=== PATIENT | female | born 1985 | race Caucasian/White ===

== ENCOUNTER → 2017-09-28 15:43 | Outpatient (CLI) | payer OTHER, SELFPAY ==
--- NOTE | 2017-09-28 15:50 | RAD_ITS ---
STUDY: X-RAY - SOFT TISSUE NECK REASON FOR EXAM: Female, 31 years old. Obstructive sleep apnea. TECHNIQUE: AP and lateral view(s) of the neck were obtained. COMPARISON: None. FINDINGS: Normal visualized nasopharynx, oropharynx, hypopharynx. The airway measures 11.6 mm from the base of the tongue to the anterior prevertebral soft tissues at the C2 level. Normal epiglottis. Normal visualized subglottic tracheal air column. Normal prevertebral soft tissue structures. Normal visualized osseous structures. The soft tissue structures are unremarkable. RAD/Neck for Soft Tissue IMPRESSION: The airway measures 11.6 mm from the base of the tongue to the anterior prevertebral soft tissues at the C2 level. Electronically Signed: Tanner Cheek MD at 8:10 EDT Tel [phone], Service support ,
== END ==
PROVIDERS: Family Provider Family Medicine; PCP Family Medicine; Visit Provider Otolaryngology Otolaryngology/Facial Plastic Surgery
DX: G47.33 Obstructive sleep apnea (adult) (pediatric) (principal); R06.83 Snoring
CPT/HCPCS: 70360

== ENCOUNTER → 2018-03-08 16:08 | Outpatient (CLI) | payer OTHER, SELFPAY ==
[2018-03-08 16:47] LABS: Absolute Lymphocyte Count 1.56 X10^3/ul (0.83-4.51); Absolute Neutrophil Count 6.6 X10^3/uL (2.0-7.7); Basophil# 0.03 X10^3/uL; Basophil% 0.3 % (0-1); Eosinophil# 0.31 X10^3/uL; Eosinophils% 3.3 % (0-5); Hematocrit 38.4 % (37-47); Hemoglobin 12.9 g/dl (12.0-15.0); Lymphocyte # 1.56 X10^3/ul (4.0); Lymphocyte % 16.6 % (19-41); Mean Corp Hgb Conc 33.6 g/gl (32-36); Mean Corpuscular Hgb 30.2 pg (27.0-32.0); Mean Corpuscular Volume 89.9 fL (81-99); Mean Platelet Vol. 10.7 fl (6.2-12.0); Monocyte# 0.83 X10^3/uL; Monocyte% 8.8 % (0-10); Neutrophil # 6.64 X10^3/uL (2.7-7.7); Neutrophil % 70.9 % (47-70); Platelet Count 194 K/mm3 (150-450); RBC Distribution Width CV 12.7 % (11.6-14.6); Red Blood Count 4.27 M/mm3 (4.2-5.4); White Blood Count 9.4 K/mm3 (4.4-11.0)
[2018-03-08 16:50] LABS: POSITIVE COUNT NO; POSITIVE DIFFERENTIAL NO; POSITIVE MORPHOLOGY NO
[2018-03-09 10:31] LABS: HIV - WCH Non-Reactive (Nonreactive); Rubella IgG > 500.0 IU/mL
[2018-03-11 03:49] LABS: Rapid Plasmin Reagin (RPR) NONREACTIVE (NONREACTIVE)
[2018-03-11 09:48] LABS: HEPATITIS B SURFACE AG Negative (Negative)
== END ==
PROVIDERS: Family Provider Family Medicine; PCP Family Medicine; Visit Provider Obstetrics & Gynecology
DX: Z34.90 Encounter for supervision of normal pregnancy, unspecified, unspecified trimester (principal)
CPT/HCPCS: 36415; 85025; 86592; 86703; 86762; 86850; 86900; 87340

== ENCOUNTER → 2018-03-08 17:54 | Outpatient (CLI) | payer OTHER, SELFPAY ==
[2018-03-08 19:51] LABS: Chlamydia Trachomatis by PCR Negative (Negative); Neisserai gonorrhoeae by PCR Negative (Negative); Probe Check PASS; Sample Adequacy Control PASS; Specimen Processing Control PASS
== END ==
PROVIDERS: Family Provider Family Medicine; PCP Family Medicine; Visit Provider Obstetrics & Gynecology
DX: Z34.90 Encounter for supervision of normal pregnancy, unspecified, unspecified trimester (principal)
CPT/HCPCS: 87086; 87491; 87591

== ENCOUNTER → 2018-03-17 14:30 | Outpatient (CLI) | payer OTHER, SELFPAY | PROVIDERS: Family Provider Family Medicine; PCP Family Medicine; Visit Provider Nurse Practitioner Women's Health | DX: Z34.81 Encounter for supervision of other normal pregnancy, first trimester (principal) | CPT/HCPCS: 36415 ==

== ENCOUNTER → 2018-03-29 13:44 | Outpatient (CLI) | payer OTHER, SELFPAY | PROVIDERS: Family Provider Family Medicine; PCP Family Medicine; Visit Provider Nurse Practitioner Women's Health | DX: Z34.81 Encounter for supervision of other normal pregnancy, first trimester (principal) ==

== ENCOUNTER → 2018-07-14 10:49 | Outpatient (CLI) | payer OTHER, SELFPAY ==
[2018-07-14 10:26] VITALS: BMI 34.2
[2018-07-14 11:39] LABS: Absolute Lymphocyte Count 1.32 X10^3/ul (0.83-4.51); Absolute Neutrophil Count 5.9 X10^3/uL (2.0-7.7); Basophil# 0.01 X10^3/uL; Basophil% 0.1 % (0-1); Eosinophil# 0.18 X10^3/uL; Eosinophils% 2.3 % (0-5); Glucose Challenge Gest 1H 50g 126 mg/dL (70-140); Hematocrit 32.8 % (37-47); Hemoglobin 10.9 g/dl (12.0-15.0); Lymphocyte # 1.32 X10^3/ul (4.0); Lymphocyte % 16.6 % (19-41); Mean Corp Hgb Conc 33.2 g/gl (32-36); Mean Corpuscular Hgb 29.5 pg (27.0-32.0); Mean Corpuscular Volume 88.9 fL (81-99); Mean Platelet Vol. 10.4 fl (6.2-12.0); Monocyte# 0.51 X10^3/uL; Monocyte% 6.4 % (0-10); Neutrophil # 5.91 X10^3/uL (2.7-7.7); Neutrophil % 74.5 % (47-70); Platelet Count 177 K/mm3 (150-450); RBC Distribution Width CV 12.6 % (11.6-14.6); RBC Distribution Width SD 40.6 fl (35.1-43.9); Red Blood Count 3.69 M/mm3 (4.2-5.4); White Blood Count 7.9 K/mm3 (4.4-11.0)
[2018-07-14 11:40] LABS: POSITIVE COUNT NO; POSITIVE DIFFERENTIAL NO; POSITIVE MORPHOLOGY NO
== END ==
PROVIDERS: Family Provider Family Medicine; PCP Family Medicine; Visit Provider Nurse Practitioner Women's Health
DX: Z34.90 Encounter for supervision of normal pregnancy, unspecified, unspecified trimester (principal)
CPT/HCPCS: 36415; 82950; 85025; 86850; 86900

== ENCOUNTER → 2018-08-25 13:38 | Outpatient (CLI) | payer OTHER, SELFPAY ==
[2018-08-17 10:50] VITALS: BMI 36.0
[2018-08-25 14:04] LABS: ROM Internal Control Test YES-OK TO RESULT pt. (Internal QC); ROM Patient Test Negative (Negative); Record Kit Lot#, ROM+ J7836
== END ==
PROVIDERS: Family Provider Family Medicine; PCP Family Medicine; Referring Provider Nurse Practitioner Women's Health; Visit Provider Nurse Practitioner Women's Health
DX: N89.8 Other specified noninflammatory disorders of vagina (principal)
CPT/HCPCS: 84112

== ENCOUNTER 2018-08-31 12:10 | Outpatient (CLI) | payer OTHER, SELFPAY ==
[2018-08-31 10:27] VITALS: BMI 36.8
[2018-08-31 12:22] VITALS: BMI 36.2
[2018-08-31 12:40] LABS: Protein, Urine (Random) 19.1 mg/dL (<11.9); Protein:Creat Ratio 87 mg/g CRE (0-200)
[2018-08-31 12:56] LABS: Hematocrit 35.6 % (37-47); Hemoglobin 11.6 g/dl (12.0-15.0); Mean Corp Hgb Conc 32.6 g/gl (32-36); Mean Corpuscular Hgb 28.5 pg (27.0-32.0); Mean Corpuscular Volume 87.5 fL (81-99); Mean Platelet Vol. 10.7 fl (6.2-12.0); Platelet Count 176 K/mm3 (150-450); RBC Distribution Width CV 13.5 % (11.6-14.6); RBC Distribution Width SD 43.2 fl (35.1-43.9); Red Blood Count 4.07 M/mm3 (4.2-5.4); Scan Indicated on CBC? Y/N NO; White Blood Count 9.5 K/mm3 (4.4-11.0)
[2018-08-31 13:03] LABS: Partial Thromboplast Time 25.2 Seconds (24.1-36.2); Prothrombin Time (Protime)PT. 12.9 SECONDS (11.7-14.9)
[2018-08-31 13:16] LABS: AST(SGOT) 9 U/L (15-37); Alanine Aminotransfer ALT/SGPT 9 U/L (13-56); Creatinine, Serum 0.69 mg/dL (0.55-1.02); EST Glomerular Filtration Rate 106 mL/min (>60); Est Glom Filt Rate - Afr Amer 128 mL/min (>60); Estimated Creatinine Clearance 114.88 ml/min; Uric Acid 4.6 mg/dL (2.6-6.0)
--- NOTE | 2018-08-31 14:08 | NURSING ---
Was seen in office prior to observation.
--- NOTE | 2018-08-31 21:34 | OB.TRI.NOTE ---
- Problem List (1) Elevated blood pressure affecting in third trimester, antepartum Status: Acute History of Present Illness Date of Service: 08/31/18 Was patient seen by the physician?: Yes Reason For Visit: R/O PRE E Final KALYAN Source: US <20 weeks History of Present Illness: patient presented to office and had elevated bps so sent for evaluation- repeat bps all WNL, co some contractions Allergies oxycodone HCl [From Percocet] Allergy (Verified 08/31/18 12:17) Hives vomiting - Pertinent Past Medical History Medical History: Past Medical History (Last Reviewed 08/31/18 @ 10:14 by Dayana Soto) Abnormal Pap smear of cervix Surgical History: Past Surgical History (Last Reviewed 08/31/18 @ 10:14 by Dayana Soto) S/P LEEP 08/2012 s/p right hip surgery 04/2014 Laboratory Studies: Laboratory Tests 08/31/18 08/31/18 08/31/18 Range/Units 12:45 12:45 12:45 WBC 9.5 (4.4-11.0) K/mm3 RBC 4.07 L (4.2-5.4) M/mm3 Hgb 11.6 L (12.0-15.0) g/dl Hct 35.6 L (37-47) % MCV 87.5 (81-99) fL MCH 28.5 (27.0-32.0) pg MCHC 32.6 (32-36) g/gl RDW 13.5 (11.6-14.6) % RDW Differential 43.2 (35.1-43.9) fl Plt Count 176 (150-450) K/mm3 MPV 10.7 (6.2-12.0) fl PT 12.9 (11.7-14.9) SECONDS INR 1.0 APTT 25.2 (24.1-36.2) Seconds Creatinine 0.69 (0.55-1.02) mg/dL Estim Creat Clear Calc 114.88 ml/min Est GFR (MDRD) Af Amer 128 (>60) mL/min Est GFR (MDRD) Non-Af 106 (>60) mL/min Uric Acid 4.6 (2.6-6.0) mg/dL AST 9 L (15-37) U/L ALT 9 L (13-56) U/L U Random Total Protein (<11.9) mg/dL Urine Creatinine (NO RANGE EST.) mg/dL Protein/Creatinin Ratio (0-200) mg/g CRE 08/31/18 Range/Units 12:20 WBC (4.4-11.0) K/mm3 RBC (4.2-5.4) M/mm3 Hgb (12.0-15.0) g/dl Hct (37-47) % MCV (81-99) fL MCH (27.0-32.0) pg MCHC (32-36) g/gl RDW (11.6-14.6) % RDW Differential (35.1-43.9) fl Plt Count (150-450) K/mm3 MPV (6.2-12.0) fl PT (11.7-14.9) SECONDS INR APTT (24.1-36.2) Seconds Creatinine (0.55-1.02) mg/dL Estim Creat Clear Calc ml/min Est GFR (MDRD) Af Amer (>60) mL/min Est GFR (MDRD) Non-Af (>60) mL/min Uric Acid (2.6-6.0) mg/dL AST (15-37) U/L ALT (13-56) U/L U Random Total Protein 19.1 H (<11.9) mg/dL Urine Creatinine 220.00 (NO RANGE EST.) mg/dL Protein/Creatinin Ratio 87 (0-200) mg/g CRE NST - FHR Rate Baby A Baseline: 140 Variability:: Moderate Accelerations:: 15 x 15 Decelerations:: None NST Reactive:: Yes FHR Category:: Category I Uterine Activity:: irritability Impression/Plan elevate dblood pressures- repeat pressure and labs WNL, no cervical change dc home
== END 2018-08-31 14:10 | disposition home or self-care (01) ==
LOC: WPOUT 12:11 → OBT 12:29
PROVIDERS: Family Provider Family Medicine; PCP Family Medicine; Referring Provider Obstetrics & Gynecology; Visit Provider Obstetrics & Gynecology
DX: O16.9 Unspecified maternal hypertension, unspecified trimester (principal); Z3A.00 Weeks of gestation of pregnancy not specified
CPT/HCPCS: 36415; 59025; 59050; 82565; 82570; 84156; 84450; 84460; 84550; 85027; 85610; 85730; 99218; G0378

== ENCOUNTER 2018-09-06 09:40 | Outpatient (CLI) | payer OTHER, SELFPAY ==
[2018-09-06 10:27] LABS: ROM Internal Control Test YES-OK TO RESULT pt. (Internal QC); ROM Patient Test Negative (Negative)
[2018-09-06 10:28] LABS: Record Kit Lot#, ROM+ J7836
[2018-09-06 10:31] VITALS: BMI 36.5
--- NOTE | 2018-09-06 11:37 | OB.TRI.NOTE ---
- Problem List (1) Threatened labor Status: Acute History of Present Illness Date of Service: 09/06/18 Was patient seen by the physician?: No Reason For Visit: R/O SROM Final KALYAN Source: US <20 weeks History of Present Illness: co lof and irregualr ctx, headaches Allergies oxycodone HCl [From Percocet] Allergy (Verified 08/31/18 12:17) Hives vomiting - Pertinent Past Medical History Medical History: Past Medical History (Last Reviewed 08/31/18 @ 10:14 by Dayana Soto) Abnormal Pap smear of cervix Surgical History: Past Surgical History (Last Reviewed 08/31/18 @ 10:14 by Dayana Soto) S/P LEEP 08/2012 s/p right hip surgery 04/2014 Laboratory Studies: Laboratory Tests 09/06/18 Range/Units 10:00 Vag Amniotic Fld Detect Negative (Negative) NST - FHR Rate Baby A Baseline: 130 Variability:: Moderate Accelerations:: 15 x 15 Decelerations:: None NST Reactive:: Yes FHR Category:: Category I Uterine Activity:: irregular Impression/Plan threatened labor no cervical change reactive nst dc home labor precautions
== END 2018-09-06 11:15 | disposition home or self-care (01) ==
LOC: WPOUT 09:46 → OBT 09:46
PROVIDERS: Advanced Practice Midwife; Family Provider Family Medicine; PCP Family Medicine; Referring Provider Obstetrics & Gynecology; Visit Provider Obstetrics & Gynecology
DX: O60.00 Preterm labor without delivery, unspecified trimester (principal); Z3A.00 Weeks of gestation of pregnancy not specified
CPT/HCPCS: 59025; 59050; 84112; 87077; 87081; 87186; 99218; G0378

== ENCOUNTER → 2018-09-19 10:39 | Outpatient (CLI) | payer OTHER, SELFPAY ==
[2018-09-19 10:22] VITALS: BMI 36.5
[2018-09-19 11:05] LABS: Absolute Lymphocyte Count 1.39 X10^3/ul (0.83-4.51); Absolute Neutrophil Count 6.4 X10^3/uL (2.0-7.7); Basophil# 0.02 X10^3/uL; Basophil% 0.2 % (0-1); Eosinophil# 0.19 X10^3/uL; Eosinophils% 2.2 % (0-5); Hematocrit 35.7 % (37-47); Hemoglobin 11.4 g/dl (12.0-15.0); Lymphocyte # 1.39 X10^3/ul (4.0); Lymphocyte % 15.9 % (19-41); Mean Corp Hgb Conc 31.9 g/gl (32-36); Mean Corpuscular Hgb 28.6 pg (27.0-32.0); Mean Corpuscular Volume 89.5 fL (81-99); Mean Platelet Vol. 11.2 fl (6.2-12.0); Neutrophil # 6.42 X10^3/uL (2.7-7.7); Neutrophil % 73.5 % (47-70); Platelet Count 163 K/mm3 (150-450); RBC Distribution Width CV 14.3 % (11.6-14.6); RBC Distribution Width SD 46.2 fl (35.1-43.9); Red Blood Count 3.99 M/mm3 (4.2-5.4); White Blood Count 8.7 K/mm3 (4.4-11.0)
[2018-09-19 11:06] LABS: POSITIVE COUNT NO; POSITIVE DIFFERENTIAL NO; POSITIVE MORPHOLOGY NO
[2018-09-19 11:23] LABS: Protein, Urine (Random) 16.3 mg/dL (<11.9); Protein:Creat Ratio 96 mg/g CRE (0-200)
[2018-09-19 11:27] LABS: ALB/GLOB Ratio 0.6 RATIO (0.9-2.4); AST(SGOT) 10 U/L (15-37); Alanine Aminotransfer ALT/SGPT 11 U/L (13-56); Albumin, Serum 2.7 g/dL (3.2-5.0); Alkaline Phosphatase 80 U/L (45-117); Anion Gap 11 (5-15); BUN 7 mg/dL (7-18); BUN/Creat Ratio 9.2 RATIO (10-20); Calcium,Total 8.1 mg/dL (8.5-10.1); Chloride 107 mmol/L (98-107); Creatinine, Serum 0.76 mg/dL (0.55-1.02); EST Glomerular Filtration Rate 94 mL/min (>60); Est Glom Filt Rate - Afr Amer 113 mL/min (>60); Globulin 4.2 g/dL (2.2-4.2); Glucose 100 mg/dL (74-106); Potassium 3.6 mmol/L (3.5-5.1); Protein, Total 6.9 g/dL (6.4-8.2); Sodium Level 140 mmol/L (136-145)
== END ==
PROVIDERS: Family Provider Family Medicine; PCP Family Medicine; Visit Provider Obstetrics & Gynecology
DX: O16.9 Unspecified maternal hypertension, unspecified trimester (principal); Z3A.00 Weeks of gestation of pregnancy not specified
CPT/HCPCS: 36415; 80053; 82570; 84156; 85025

== ENCOUNTER 2018-09-20 06:41 | Inpatient (IN) | payer OTHER, SELFPAY ==
[2018-09-19 10:22] VITALS: BMI 36.5
[2018-09-20] MEDS: Lactated Ringers 1,000 ML 50 ML IV ×3 (07:53→16:24)
[2018-09-20 08:00] LABS: Hematocrit 34.1 % (37-47); Mean Corp Hgb Conc 32.3 g/gl (32-36); Mean Corpuscular Hgb 28.4 pg (27.0-32.0); Mean Corpuscular Volume 87.9 fL (81-99); Mean Platelet Vol. 11.3 fl (6.2-12.0); Platelet Count 157 K/mm3 (150-450); RBC Distribution Width CV 14.2 % (11.6-14.6); RBC Distribution Width SD 44.8 fl (35.1-43.9); Red Blood Count 3.88 M/mm3 (4.2-5.4); White Blood Count 8.7 K/mm3 (4.4-11.0)
[2018-09-20 08:02] LABS: Scan Indicated on CBC? Y/N NO
[2018-09-20] MEDS: Oxytocin 30 units/NS 500 ml 30 UNITS/500 ML IV.SOLN IV (08:10)
[2018-09-20 08:14] VITALS: BMI 36.6
[2018-09-20] MEDS: 0.9% Normal Saline 100 ML IV.SOLN. INTRA-UTER (09:04)
[2018-09-20] MEDS: Mag Hydrox/Al Hydrox/Simeth 30 ML UDC PO ×4 (09:08→21:38)
[2018-09-20] MEDS: fentaNYL-bupivacaine (epidural) 100 ML BAG EPIDURAL ×3 (10:14→19:26)
[2018-09-20] MEDS: Acetaminophen 325 MG Tablet PO ×2 (12:35→19:42)
[2018-09-20] MEDS: Ondansetron 4 MG/2 ML Vial IV (13:08)
[2018-09-20] MEDS: 0.9% Saline Lock 10 ML Syringe IV ×2 (16:24→23:46)
[2018-09-20] MEDS: Oxytocin 30 units/NS 500 ml 30 UNITS/500 ML IV.SOLN 334 UNITS IV (21:53)
[2018-09-20] MEDS: Oxytocin 30 units/NS 500 ml 30 UNITS/500 ML IV.SOLN 167 UNITS IV (22:23)
--- NOTE | 2018-09-20 22:36 | HP.PCM_ITS ---
- Problem List (1) Gestational hypertension Status: Acute (2) GBS (group B Streptococcus carrier), +RV culture, currently Status: Acute (3) History of LEEP (loop electrosurgical excision procedure) of cervix complicating Status: Acute Qualifiers: Comment: 5cm cervical length (4) Status: Acute Qualifiers: Comment: NT normal, NIPT negative, afp declined. anatomy scan normal. 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 Is patient in pain?: No Allergies oxycodone HCl [From Percocet] Allergy (Verified 09/19/18 10:21) Hives Medications Prenatabs FA 1 tab PO DAILY 05/10/17 [History Confirmed 09/19/18] albuterol sulfate HFA 90 mcg/actuation aerosol inhaler 2 puff INHALATION Q6H PRN 03/08/18 [History Confirmed 09/19/18] Ferrous Sulfate 325 mg PO DAILY 08/31/18 [History Confirmed 09/19/18] Last Menstral Period: 11/09/17 Zika: Zika virus screening: Negative : No PFSH PFSH Medical History Abnormal Pap smear of cervix (Acute) Surgical History S/P LEEP (Resolved) s/p right hip surgery (Resolved) Family History Mother Asthma Grandmother Asthma COPD (chronic obstructive pulmonary disease) CVA (cerebral vascular accident) Dementia Grandfather CVA (cerebral vascular accident) Social History Smoking Status: Former smoker alcohol intake: never substance use type: does not use caffeine: Yes what type of physical activity do you participate in: none seatbelt use: always do you feel safe at home: Yes additional social history: - [place]- Works at [employer] 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 Date Name GA/Weeks Outcome Route Bth Weight Gen Labor Lgth Anesthesia Del Locatn Provider FOB 07/17/09 Gabriela 38 live - full term 7lbs 7oz Female 36 hours epidural [facility], [place] Dr. Igor Upton 06/07/17 Meeta 39 live - full term 7lbs 8oz Female 12 horus epidural [facility] Pooja Nesbitt Delivery Date: 06/07/17 On 03/08/18 @ 14:43 Raisa Garcia No issues during . Meeta was stunned when delivered. Delivery Date: 07/17/09 On 03/08/18 @ 14:40 Raisa Garcia No issues during and delivery. HPI 37 WEEK OB: Details: RONNI BATES is a 32 year old who presents for routine OB visit. OB Visit KALYAN Calculator Estimated Delivery Date 10/11/18 Based on Ultrasound Date 03/08/18 Current WG 36w 6d Number 1 Expected Delivery Route/Plan Specific Issue/Plans flu vaccine: given tdap vaccine: given rhogam: NA LARC form signed: declined labor support person:Laz pain management: epidural cut cord/dad catch: : yes PP control planned: considering sterilization/iud special requests: [] Initial Weight: 213 lb Date EGA Weight BP Urine Prot Glucose FHR FuHt Pres Mov CTX Dilation Effaced St Visit Note 04/07/18 13w 2d 213 lb 8 oz (+8 oz) 124/80 Negative Negative 145 no vb cramping normal nt and nipt. needs afp next visit 05/09/18 17w 6d 214 lb (+16 oz) 124/68 Negative Negative 145 no vb cramping has anatomy scan scheduled 06/08/18 22w 1d 219 lb (+6 lb) 112/80 Negative Negative 145 co not feeling well, low energy and feeling swollen. decreased appetite. 07/14/18 27w 2d 226 lb 4 oz (+13 lb 4 oz) 120/78 Negative Negative 156 28 Active Doing well. No VB, LOF. Questions movement not as much as with prior 08/03/18 30w 1d 229 lb (+16 lb) 130/80 150 31 Active no vb lof good fm no regular ctx 08/17/18 32w 1d 230 lb (+17 lb) 120/82 Negative Negative 150 33 Active discussed floaters in her eyes - doesn't feel comfortable driving, has had this in the past. she denies any regular ctx, co losing some mucous plug. some edema no elevated blood pressures 08/25/18 33w 2d 235 lb (+22 lb) 130/70 150 34 Decr frequent 0 co conractions and not feeling well, not feeling baby as much- no dilation, reassuring NST. dc home labor precautions 08/31/18 34w 1d 232 lb (+19 lb) 116/90 Negative Negative 150 36 Active occasional no vb lof good fm 09/12/18 35w 6d 237 lb (+24 lb) 120/86 Negative 500 g/dL 135 37 Active frequent 1 no vb lof good f, n oregular ctx 09/19/18 36w 6d 236 lb (+23 lb) 150/70 Negative Negative 135 38 Active frequent initial elevated bp, co dizziness and change in vision. recommend IOL for GHTN tomorrow. Visit Notes Visit Date: 09/19/18 ??initial elevated bp, co dizziness and change in vision. recommend IOL for GHT N tomorrow. ??Tatiana Watkins MD on 09/19/18 Visit Date: 09/12/18 ??no vb lof good f, n oregular ctx ??Tatiana Watkins MD on 09/12/18 Visit Date: 08/31/18 ??no vb lof good fm ??Tatiana Watkins MD on 08/31/18 Visit Date: 08/25/18 ??co conractions and not feeling well, not feeling baby as much- no dilation, reassuring NST. dc home labor precautions ??Tatiana Watkins MD on 09/01/18 Visit Date: 08/17/18 ??discussed floaters in her eyes - doesn't feel comfortable driving, has had this in the past. she denies any regular ctx, co losing some mucous plug. some edema no elevated blood pressures ??Tatiana Watkins MD on 08/17/18 Visit Date: 08/03/18 ??no vb lof good fm no regular ctx ??Tatiana Watkins MD on 08/03/18 Visit Date: 07/14/18 ??Doing well. No VB, LOF. Questions movement not as much as with prior ??Ade Ceron NP-C on 07/14/18 Visit Date: 06/08/18 ??co not feeling well, low energy and feeling swollen. decreased appetite. ??Tatiana Watkins MD on 06/08/18 Visit Date: 05/09/18 ??no vb cramping has anatomy scan scheduled ??Tatiana Watkins MD on 05/09/18 Visit Date: 04/07/18 ??no vb cramping normal nt and nipt. needs afp next visit ??Tatiana Watkins MD on 04/07/18 ACOG First Trimester First Trimester: Desire for , Alcohol, Tobacco Cessation, Illicit/Recreational Drug/Substance Use, Intimate Partner Violence, Barriers to care, Unstable Housing, Communication Barriers, Environmental/Work Hazards, Anticipated Course of Care, Toxoplasmosis Precations, Use of Any medications, Sexual activity, Exercise, Dental Care, Sauna/Hot tub use, Seat Belt use, Childbirth classes/Hospital facilities, , Travel, Indications for US and Screening for Aneuploidy Second Trimester Second Trimester: Signs and Symptoms of Labor, Selecting a care provider, Reproductive Life Planning, Care Planning, Tobacco Cessation, Depression/Anxiety and Intimate Partner Violence Third Trimester Third Trimester: Pain Management Plans, Labor support person(s), Immediate Larc, Movement Monitoring and Feeding Yes ; discussed Trial of Labor after Counseling or discussed Circumcision preference Diagnostics Diagnostics Labs Blood Type A POSITIVE 07/14/18 Antibody Screen NEGATIVE 07/14/18 Hct Pending 09/19/18 Hgb Pending 09/19/18 Glucose 1 Hr 50 gm 126 mg/dL (70-140) 07/14/18 Details: HIV: Urine Culture: Sequential Screen: NIPT Screen: ROS Card Reports system reviewed and no additional complaints, except as docu Resp Reports system reviewed and no additional complaints, except as docu GI Reports system reviewed and no additional complaints, except as docu, Reports nausea Reports system reviewed and no additional complaints, except as docu Musc Reports system reviewed and no additional complaints, except as docu Exam Const General: cooperative, healthy appearing, comfortable, anxious [facility] Head: normal to inspection Nose: external nose normal Face and sinus: normal facial exam Neck Neck: normal visual inspection, full ROM, no lymphadenopathy Thyroid: thyroid normal Chest Chest palpation & inspection: normal inspection of the chest Resp Effort & Inspection: normal respiratory effort GI Inspection: normal to inspection Palpation: soft, other (gravid uterus) Other: vertex and appropriate size for gestational age Other: Cervical Exam: Extrem General: pedal edema Results [id number] Office Urine Glucose Negative Last Edit by Dayana Soto on 09/19/18 10:27 Office Urine Protein Negative Last Edit by Dayana Soto on 09/19/18 10:27 Assessment & Plan Problems 1. Mild intermittent asthma without complication J45.20 2. GBS (group B Streptococcus carrier), +RV culture, currently O99.820 3. History of loop electrosurgical excision procedure (LEEP) of cervix affecting in third trimester O34.43 5cm cervical length 4. 34 weeks gestation of Z3A.34 NT normal, NIPT negative, afp declined. anatomy scan normal. 5. Encounter for supervision of other normal in third trimester Z34.83 PRR EDD4/08/30 boy PC zoë meeta Laz 6. Gestational hypertension, third trimester O13.3 Plan discussed and recommend checking labs now, plan IOL for GHTN tomorrow. plan pitocin and fb induction pcn for gbs Orders Orders: POC Urinalysis 2 Dip (Clinic) Today Comprehensive Metabolic Profil Today O16.9 CBC W/Diff, Automated Today O16.9 Protein+Creatinine Ratio,Urine Today O16.9 Coding Level of Care Code OB Routine Diagnoses Mild intermittent asthma without complication J45.20 ??Asthma complication type: uncomplicated ??Asthma persistence: intermittent ??Asthma severity: mild GBS (group B Streptococcus carrier), +RV culture, currently O99.820 History of loop electrosurgical excision procedure (LEEP) of cervix affecting in third trimester O34.43 ??Trimester: third trimester 34 weeks gestation of Z3A.34 ??Weeks of gestation: 34 weeks Encounter for supervision of other normal in third trimester Z34.83 ??Normal : other normal ??Trimester: third trimester Gestational hypertension, third trimester O13.3 ??Trimester: third trimester UPDATE- I have seen the patient and performed any clinically relevant updates to the history and physical exam. Tatiana Watkins MD
--- NOTE | 2018-09-20 22:56 | PCM.OB.VAG ---
- Problem List (1) Gestational hypertension Status: Acute (2) GBS (group B Streptococcus carrier), +RV culture, currently Status: Acute (3) History of LEEP (loop electrosurgical excision procedure) of cervix complicating Status: Acute Qualifiers: Comment: 5cm cervical length (4) Status: Acute Qualifiers: Comment: NT normal, NIPT negative, afp declined. anatomy scan normal. (5) Supervision of normal Status: Acute Qualifiers: Comment: PRR EDD4/08/30 boy CURTIS meeta camp Laz (6) Asthma Status: Chronic Qualifiers: Vaginal Delivery Maternal Presentation: Medically Indicated Induction iol ghtn Amniotic Membrane Rupture Type: Artificial Amniotic Fluid Description: Clear Final KALYAN: 10/11/18 Gestational age: 37 Weeks and 0 Days Date of Procedure: 09/20/18 Pre-Operative Diagnosis: iol ghtn Post-Operative Diagnosis: same Surgery/ Procedure Performed: Spontaneous Vaginal Delivery Type of Anesthesia: Epidural Description of Procedure: Patient began pushing and delivered the head in the NANCY presentation. The head was delivered atraumatically . The anterior and posterior shoulders delivered without complication followed by the rest of the infant and the was placed on the maternal abdomen. Delayed cord clamping was employed for approximately 60 seconds. Cord was clamped and cut and gentle traction was applied to the cord and the placenta delivered spontaneously immediately following it was noted to be intact with three-vessel cord. The perineum and vagina were inspected and noted to have no laceration. EBL was 100 cc. Patient and infant tolerated delivery well. Presentation: NANCY Placental Delivery Description: Spontaneous Placenta Disposition: [facility] Cord Vessel Description: 3 Vessels Cord Entanglement: None Estimated Blood Loss: 100 A gender: Male Episiotomy Description: None Laceration: None Medications given after delivery: IV Pitocin Complications: None
[2018-09-20] MEDS: Naproxen 250 MG Tablet PO (23:45)
[2018-09-21] MEDS: Acetaminophen 500 MG Tablet 1000 MG PO (03:19)
[2018-09-21 03:30] VITALS: BP 125/65; PULSE 93; RESP 16; TEMP 36.3
[2018-09-21 07:29] VITALS: BP 132/82; PULSE 90; RESP 16; TEMP 36.1; O2SAT 99
--- NOTE | 2018-09-21 07:36 | PCM.PN.OB ---
Patient Problems: Active and Suspected Problems (Last Reviewed 09/19/18 @ 10:22 by Dayana Soto) Gestational hypertension (Acute) Subjective: doing well no complaints pain controlled no CP SOB N V ambulating well tolerating po lochia moderate, going well - Physical Exam General: Alert, Oriented x3 Abdomen: Soft, Non Tender, Non-Distended - FF below U Vital Signs Temp Pulse Resp BP Pulse Ox 97.0 F L 90 16 132/82 H 99 09/21/18 07:29 09/21/18 07:29 09/21/18 07:29 09/21/18 07:29 09/21/18 07:29 Oxygen Delivery Method Room Air Weight: 234 lb 2.095 oz Body Mass Index (BMI) 36.6 Finger Stick Blood Glucose 86 Intake and Output for Last 24 Hours 09/19/18 09/20/18 09/21/18 23:59 23:59 23:59 Intake Total 3403 / 3403 2412 / 2412 Output Total 2300 / 2300 1700 / 1700 Balance 1103 / 1103 712 / 712 Laboratory Tests Past 24 Hrs 09/20/18 09/20/18 07:45 07:45 WBC 8.7 RBC 3.88 L Hgb 11.0 L Hct 34.1 L MCV 87.9 MCH 28.4 MCHC 32.3 RDW 14.2 RDW Differential 44.8 H Plt Count 157 MPV 11.3 Blood Type A POSITIVE Antibody Screen NEGATIVE Medical Necessity - Tobacco Use Smoking Status: Former smoker Assessment/Plan All Active Problems (Last Reviewed 09/19/18 @ 10:22 by Dayana Soto) Gestational hypertension (Acute) GBS (group B Streptococcus carrier), +RV culture, currently (Acute) Supervision of normal (Acute) (Acute) History of LEEP (loop electrosurgical excision procedure) of cervix complicating (Acute) screening encounter (Resolved) Elevated blood pressure affecting in third trimester, antepartum (Resolved) PROM (premature rupture of membranes) (Resolved) Threatened labor (Resolved) Tobacco abuse (Resolved) s/p PPD # 1 1. routine post delivery care 2. breast feeding- support given 3. rh positive 4. rubella immune
[2018-09-21 12:23] VITALS: BP 117/75; PULSE 81; RESP 16; TEMP 36.2; O2SAT 100
[2018-09-21] MEDS: Naproxen 250 MG Tablet PO (15:59)
[2018-09-21] MEDS: Senna/Docusate Sodium 1 Tablet PO (15:59)
[2018-09-21 16:05] VITALS: BP 113/74; PULSE 79; RESP 16; TEMP 36.3; O2SAT 100
--- NOTE | 2018-09-21 20:12 | DCINST_ITS ---
Discharge Diet: No Restrictions Discharge Activity: Return to Normal Activity, May not drive while taking narcotic pain medications., May Shower May resume sexual activity in: 4-6 weeks Call your doctor if your incision/area has: Continuous Slow Oozing, Sudden Increased Bleeding, Increased Pain/ Swelling, Increased Redness, Foul Smelling Discharge Additional Instructions: If you experience any of the following, contact your healthcare provider. * Bleeding that soaks a pad every hour for 2 hours * Fever 100.4 or higher * Unrelieved incision or abdominal pain * Swelling, redness, discharge or bleeding from your incision or episiotomy site * Your incision begins to separate * Problems urinating (including inability to urinate or burning while urinating). * Visual changes * Severe headache * Flu-like symptoms * Pain or redness in one of both of your breasts * Pain, warmth, tenderness or swelling in your legs, especially the calf area * Frequent nausea and vomiting * Symptoms of depression or anxiety If you experience any of the following, call 911 or go to the nearest Emergency Room. * Chest pain * Problems breathing * Seizure activity * Partial or complete paralysis of a body part, slurred speech, weakness or drooping of the face, or a sudden inability to walk or hold your balance Allergies/Adverse Reactions: Allergies oxycodone HCl [From Percocet] Allergy (Verified 09/20/18 07:34) Hives vomiting Medications to take at Discharge Prenatabs FA 1 tab PO DAILY 05/10/17 albuterol sulfate HFA 90 mcg/actuation aerosol inhaler 2 puff INHALATION Q6H PRN 03/08/18 Ferrous Sulfate 325 mg PO DAILY 08/31/18 Please Follow Up With: Tatiana Watkins MD - [phone] When: Call to make an appointment with your doctor in 6 weeks. If you had elevated Blood pressure or 4th degree laceration you will need to be seen in 2 weeks. Primary Care Physician: Leonard Crespo III, MD [Primary Care Provider] - Test Results: Test results from this visit will be discussed in further detail at your follow- up appointment, if applicable.
[2018-09-21 20:35] VITALS: BP 113/54; PULSE 79; RESP 18; TEMP 36.7
== END 2018-09-21 23:24 | disposition home or self-care (01) | DRG 806 ==
PROVIDERS: Admitting Provider Obstetrics & Gynecology; Family Provider Family Medicine; PCP Family Medicine; Referring Provider Obstetrics & Gynecology; Visit Provider Obstetrics & Gynecology
DX: O13.4 Gestational [pregnancy-induced] hypertension without significant proteinuria, complicating childbirth (principal); O98.82 Other maternal infectious and parasitic diseases complicating childbirth; Z37.0 Single live birth; B95.1 Streptococcus, group B, as the cause of diseases classified elsewhere; Z3A.37 37 weeks gestation of pregnancy; O75.89 Other specified complications of labor and delivery; J45.20 Mild intermittent asthma, uncomplicated; Z79.51 Long term (current) use of inhaled steroids; Z87.891 Personal history of nicotine dependence
CPT/HCPCS: 59025; 59050; 85027; 86850; 86900; 99218; J7120; A4216; G0378; J2405

== ENCOUNTER 2019-08-29 02:03 | Emergency (ER) | payer OTHER, SELFPAY ==
[2019-02-06 15:08] VITALS: BMI 34.6
[2019-08-29 02:03] VITALS: BP 135/97; PULSE 80; RESP 18; TEMP 36.7; O2SAT 96; BMI 32.8
--- NOTE | 2019-08-29 02:14 | RAD_ITS ---
HISTORY: ROLLED RT FOOT / ANKLE AT WORKC/O PAIN AREA OF RT 5TH METATARSAL ADDITIONAL HISTORY: None provided. TECHNIQUE: Right foot 3 views Number of images including paperwork: 3 COMPARISON: None FINDINGS: BONES: No acute fracture. JOINTS: No subluxation. SOFT TISSUES: No distinct foreign body. RAD/Foot min 3 Views IMPRESSION: No acute osseous abnormality. at 0239 Reported and signed by: Dayana John MD Electronically Signed: Dayana John MD at 2:39 EST Tel , Service support ,
--- NOTE | 2019-08-29 02:16 | RAD_ITS ---
HISTORY: ROLLED RT FOOT / ANKLE AT WORKC/O PAIN AREA OF RT 5TH METATARSAL ADDITIONAL HISTORY: None provided. TECHNIQUE: Right ankle 3 views Number of images including paperwork: 3 COMPARISON: None FINDINGS: BONES: No acute fracture. JOINTS: No subluxation. SOFT TISSUES: No distinct foreign body. RAD/Ankle min 3 Views IMPRESSION: No acute osseous abnormality. at 0240 Reported and signed by: Dayana John MD Electronically Signed: Dayana John MD at 2:40 EST Tel , Service support ,
--- NOTE | 2019-08-29 03:34 | ED.VIS.LOWEX ---
History of Present Illness Chief Complaint: Lower Extremity Injury Informant: Patient Occurred: Today Mechanism/Context: Injury, Work Related Onset: Today Context: Sudden Onset Timing: Continuous Quality of Pain: Burning Narrative: Patient is a 33-year-old female with no significant past medical history presenting with right ankle pain. 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 She was running to a call when she stepped in a hole and rolled her ankle. She felt something pull just below her lateral ankle. She is slowly had worsening burning pain to that area. She take Tylenol prior to arrival. She was seen at the [facility] and they put an Tk wrap on. She states that made her symptoms worse. She was instructed to come to the emergency room to be evaluated further. Patient did take Tylenol earlier this evening is not really helped. She denies any other complaints at this time. She denies associated numbness or tingling. She denies any other injuries or falls. Past Medical History - Allergies and Home Meds Allergies/Adverse Reactions: Allergies oxycodone HCl [From Percocet] Allergy (Verified 08/29/19 02:09) Hives vomiting Primary Care Physician: Leonard Crespo III, MD [Primary Care Provider] - Past Medical History: None Surgical History: noncontributory Lives: Spouse/ Significant Other, With Family Smoking Status: Never smoker Review of Systems General: Denies: Chills, Fever, Sweats ENT: Denies: Rhinorrhea, Sore throat Cardiovascular: Denies: Chest pain, Palpitations Respiratory: Denies: Dyspnea, Cough, Dyspnea on exertion Musculoskeletal: Reports: Extremity Pain - Right ankle. Denies: Back pain Skin: Denies: Rash, Wounds Neurological: Denies: Headache, Weakness, Numbness Physical Exam Vital Signs/Narrative: Vital Signs Temp Pulse Resp BP Pulse Ox 08/29/19 02:03 98.1 F 80 18 135/97 H 96 Inital Vital Signs reviewed: Yes - Extremity Exam Right Tib fib: - - No tenderness over the fibular head. Negative for: Contusion, Deformity, Edema, Limited ROM Right Ankle: - - tenderness to palpation inferior to the lateral malleolus, no associated edema. Negative for: Contusion, Deformity, Edema, Limited ROM Right Foot: - - No tenderness over the base of the fifth metatarsal. Negative for: Contusion, Deformity, Edema, Limited ROM General: Well nourished, Well developed Head: Normocephalic, Atraumatic Cardiovascular: Regular rate, - - 2+ DP pulses Respiratory: No distress Skin: Normal color, No rash Neurological: Alert, Oriented x3, Cranial nerves II-XII grossly intact, Normal Strength, Normal Sensation Psychological: Normal affect Diagnostic/Tx/Re-eval Clinical Impression(s) from Imaging Studies Foot X-Ray 08/29/19 02:14 IMPRESSION: No acute osseous abnormality. at 0239 Reported and signed by: Dayana John MD Electronically Signed: Dayana John MD at 2:39 EST Tel , Service support , Ankle X-Ray 08/29/19 02:16 IMPRESSION: No acute osseous abnormality. at 0240 Reported and signed by: Dayana John MD Electronically Signed: Dayana John MD at 2:40 EST Tel , Service support , - Medical Decision Making Patient had inversion injury to her right ankle. She likely has a sprain. She is not have any fracture. She is neurovascular intact. She is placed in air stirrup. She is able to weight-bear. She is given work restrictions for the next 48 hours for limited weightbearing and standing. Patient is instructed to take ibuprofen 600 mg every 6 hours as needed for pain. She is counseled on rice therapy. Patient is counseled on signs and symptoms requiring return to the emergency room. Patient verbalizes agreement and understand this plan. Patient discharged home in stable and improved condition. ED Disposition - Plan for ED Patient: Disposition: Home or Assisted Living Diagnosis: Right ankle sprain Instructions: Sprain, Ankle, with X-Ray Referrals: Leonard Crespo III, MD [Primary Care Provider] - Additional Instructions: Take 600 mg of ibuprofen every 6-8 hours as needed for pain. [facility] as needed.
[2019-08-29] MEDS: Ibuprofen 600 MG Tablet PO (03:55)
== END 2019-08-29 03:55 | disposition home or self-care (01) ==
PROVIDERS: Emergency Provider Emergency Medicine; PCP Family Medicine
DX: S93.401A Sprain of unspecified ligament of right ankle, initial encounter (principal); X50.1XXA Overexertion from prolonged static or awkward postures, initial encounter; Y93.02 Activity, running
CPT/HCPCS: 73610; 73630; 99283

== ENCOUNTER → 2020-07-04 13:23 | Outpatient (CLI) | payer OTHER, SELFPAY ==
[2020-07-04 13:50] LABS: hCG Titer Quant., Serum < 1 mIU/mL (1-3)
== END ==
PROVIDERS: PCP Family Medicine; Visit Provider Obstetrics & Gynecology
DX: N91.2 Amenorrhea, unspecified (principal)
CPT/HCPCS: 36415; 84702